=== PATIENT | female | born 1950 | race Caucasian/White ===

== ENCOUNTER 2024-07-26 15:16 | Outpatient (CLI) | payer MEDICARE, MEDICAID ==
[~2024-07-26] VITALS: Ht 157.5 cm; Wt 59.0 kg
[2024-07-26] MEDS: albuterol 2.5 MG/3 ML nebule NEB ONE (15:43)
[2024-07-26 15:44] VITALS: PULSE 109; RESP 16; O2SAT 95
[2024-07-26 15:56] VITALS: PULSE 102; RESP 16
== END 2024-07-26 23:59 | disposition home or self-care (01) ==
LOC: RT 15:16
PROVIDERS: ATTEND Nurse Practitioner Family
DX: R06.02 Shortness of breath (principal)
CPT/HCPCS: 94060; 94760

== ENCOUNTER 2024-09-07 13:18 | Emergency (ER) | payer MEDICARE, MEDICAID ==
[~2024-09-07] VITALS: Ht 157.5 cm; Wt 58.2 kg
[2024-09-07] MEDS: HYDROcodone/acetaminophen 5mg/325mg tablet PO ONE ×2 (14:52→22:21)
[2024-09-07 15:11] LABS: BASOPHILS # (AUTO) 0.1 X10'3 (0-0.2); BASOPHILS % (AUTO) 1.1 % (0-1); EOSINOPHILS # (AUTO) 0.1 X10'3 (0-0.9); EOSINOPHILS % (AUTO) 0.7 % (0-6); HEMATOCRIT 47.4 % (35.0-45.0); HEMOGLOBIN 15.9 g/dl (12.0-16.0); LYMPHOCYTES # (AUTO) 1.9 X10'3 (1.1-4.8); LYMPHOCYTES % (AUTO) 16.3 % (21-51); MEAN CORPUSCULAR HGB CONC 33.6 g/dL (33.0-36.5); MEAN CORPUSCULAR VOLUME 92.2 FL (78-98); MEAN PLATELET VOLUME 9.3 FL (7.4-10.4); MONOCYTES # (AUTO) 0.7 X10'3 (0-0.9); MONOCYTES % (AUTO) 5.9 % (2-12); NEUTROPHILS # (AUTO) 8.9 X10'3 (1.8-7.7); PLATELET COUNT 304 X10'3 (140-440); RED BLOOD COUNT 5.15 X10'6 (4.20-5.60); RED CELL DISTRIBUTION WIDTH 13.5 % (11.5-14.5); WHITE BLOOD COUNT 11.7 X10'3 (4.5-11.0)
[2024-09-07 15:31] LABS: ALANINE AMINOTRANSFERASE 18 U/L (12-78); ALBUMIN 4.2 G/DL (3.4-5.0); ALBUMIN/GLOBULIN RATIO 1.4 (1.1-1.5); ALKALINE PHOSPHATASE 82 IU/L (46-116); ANION GAP 8 (8-16); ASPARTATE AMINO TRANSFERASE 14 U/L (10-37); BILIRUBIN,TOTAL 0.6 MG/DL (0.1-1.0); BLOOD UREA NITROGEN 21 MG/DL (7-18); BUN/CREATININE RATIO 17.2 (10.0-20.0); CALCIUM 9.1 MG/DL (8.5-10.1); CHLORIDE 97 MMOL/L (99-107); CREATININE 1.22 MG/DL (0.40-0.90); GLUCOSE 175 MG/DL (70-104); POTASSIUM 4.9 MMOL/L (3.5-5.1); SODIUM 136 MMOL/L (135-145); TOTAL CARBON DIOXIDE 30.7 MMOL/L (24-32); TOTAL PROTEIN 7.1 G/DL (6.4-8.2); eCRCL 32 ML/MIN; eGFR 43 ML/MIN
[2024-09-07] MEDS ORDERED: iohexol 300mg/ml 100ml inj. ONE (15:34)
[2024-09-07 15:41] LABS: C-REACTIVE PROTEIN 0.48 MG/DL (0.0-0.5); THYROID STIMULATING HORMONE 3.88 ulU/ml (0.34-4.50)
[2024-09-07] MEDS: proparacaine 0.5% ophthalmic drops 15ml EACHEYE ONE (16:32)
[2024-09-07] MEDS: pilocarpine 2% ophthalmic drops 15ml RIGHTEYE ONE (21:03)
[2024-09-07] MEDS: timolol 0.5% ophthalmic solution 5ml bottle RIGHTEYE SCH (21:12)
[2024-09-07] MEDS: acetaZOLAMIDE 250mg tablet PO ONE (21:59)
[2024-09-07] MEDS: acetaZOLAMIDE IV 500mg inj IV ONE (22:01)
[2024-09-07] MEDS ORDERED: HYDR-3965 PO (22:36)
[2024-09-07] MEDS: latanoprost 0.005% 2.5ml ophthalmic drops RIGHTEYE STA (22:49)
[2024-09-07 22:52] VITALS: BP 110/81; PULSE 75; RESP 19; TEMP 98.1; O2SAT 98
== END 2024-09-07 22:55 | disposition home or self-care (01) ==
LOC: ER 13:18
DX: H40.89 Other specified glaucoma (principal); R51.9 Headache, unspecified; Z88.0 Allergy status to penicillin; Z91.011 Allergy to milk products
CPT/HCPCS: 36415; 70470; 70481; 80053; 84443; 85025; 85651; 86140; 99285; Q9967